=== PATIENT | male | born 1970 | race Caucasian/White ===

== ENCOUNTER 2018-03-20 16:42 | Emergency (ER) | payer BC ==
[2018-03-20] MEDS ORDERED: METHYLPREDNISOLONE PF 125MG/VIAL IM ONE (16:52)
--- NOTE | 2018-03-20 16:58 | Emergency Department Record ---
History of Present Illness - General Chief complaint: Bite Insect/other Stated complaint: BEE STING,ALLERGIC REATION HIVES Time Seen by Provider: 03/20/18 16:51 Source: Patient Mode of Arrival: Ambulatory Limitations: No limitations - History of Present Illness Initial comments: The patient was stung by a bee about 30 minutes prior to presenting to the ER. He does possibly have a hx of allergic reactions to stings and states he spent a night in the hospital many years ago because of the allergy. After the sting the patient did take 75 mg of Benadryl. He denies any ALMAS, SOB, trouble swallowing or voice changes. He does have a hive at the site of the bite on the R bicep and also the R hand and L side of his neck. MD complaint: Insect bite/sting, Rash Onset/Timin -: Minutes(s) Location: Neck, RUE Associated symptoms: Other Treatments Prior to Arrival: Benadryl Treatment Prior to Arrival Comment:: beer - Related Data Previous Rx's Medication Instructions Recorded Epinephrine [Epipen] 0.3 mg IM ASDIR PRN #1 syr 03/20/18 Prednisone [Prednisone 20Mg] 40 mg PO DAILY #8 tab 03/20/18 Allergies Allergy/AdvReac Type Severity Reaction Status Date / Time bee venom protein (honey bee) Allergy ANAPHYLAXIS Verified 03/20/18 16:53 Travel Screening - Travel/Exposure Within Last 30 Days Have you traveled within the last 30 days?: No - Travel/Exposure Within Last Year Have you traveled outside the [place] in the last year?: No - Additonal Travel Details Have you been exposed to anyone with a communicable illness?: No - Travel Symptoms Symptom Screening: None Review of Systems Constitutional: Denies: Chills, Fever Eyes: Denies: Eye discharge ENT: Denies: Congestion Respiratory: Denies: Cough, Dyspnea Past Medical History - SOCIAL HISTORY Smoking Status: Never smoker Alcohol Use: Rare Drug Use: None - RESPIRATORY Hx Respiratory Disorders: Yes Hx Asthma: Yes - CARDIOVASCULAR Hx Cardio Disorders: No - NEURO Hx Neuro Disorders: No - GI Hx GI Disorders: No - Hx Genitourinary Disorders: No - ENDOCRINE Hx Endocrine Disorders: No - MUSCULOSKELETAL Hx Musculoskeletal Disorders: No - PSYCH Hx Psych Problems: No - HEMATOLOGY/ONCOLOGY Hx Hematology/Oncology Disorders: No Family Medical History Any Significant Family History?: Yes Physical Exam - General General Appearance: Alert, Oriented x3, Cooperative, No acute distress - Head Head exam: Atraumatic, Normocephalic, Normal inspection - Eye Eye exam: Normal appearance, PERRL - ENT Throat exam: Normal inspection. negative: Tonsillar erythema, Tonsillar exudate - Neck Neck exam: Full ROM. negative: Normal inspection (There is a hive to the L neck measuring 1x1 cm.), Tenderness - Respiratory Respiratory exam: Normal lung sounds bilaterally. negative: Respiratory distress - Cardiovascular Cardiovascular Exam: Regular rate, Normal rhythm, Normal heart sounds - GI/Abdominal GI/Abdominal exam: Soft, Normal bowel sounds. negative: Tenderness - Extremities Extremities exam: negative: Normal inspection (There is a local allergic reaction at the bite site on the R bicep and also a hive over the dorsal R hand. ) - Neurological Neurological exam: Alert, Normal gait. negative: Abnormal gait, Motor sensory deficit Course Vital Signs 03/20/18 16:46 Temperature 97.8 F Pulse Rate 74 Respiratory 20 Rate Blood Pressure 124/87 Pulse Ox 96 - Reevaluation(s) Reevaluation #1: The patient is doing well. He has had no change in his condition and is resting comfortably. 03/20/18 17:05 Reevaluation #2: The patient is doing very well at this time. He has had no respiratory or swallowing issues and no swelling. The 3 areas of hives that he has had are resolving. 03/20/18 17:42 Reevaluation #3: The patient is doing much better at this time. He has had no ALMAS, SOB, or any further rash. The L neck rash and R hand rash have resolved and the R arm bite site is improving. The patient feels ready for home. 03/20/18 18:27 Disposition Disposition: Discharge Clinical Impression: Allergic reaction to bee sting Disposition: Home, Self-Care Condition: (2) Stable Instructions: Insect Bite or Sting (ED) Additional Instructions: Please use ice to the R arm bite site and continue the Benadryl 50 mg 4 times a day for 5 days. Continue the Prednisone tomorrow. Please see your family doctor in 2-3 days for any problems and return to the ER for any worsening symptoms or allergic reactions. Prescriptions: Epinephrine [Epipen] 0.3 mg IM ASDIR PRN #1 syr PRN Reason: Anaphylaxis Prednisone [Prednisone 20Mg] 40 mg PO DAILY #8 tab Forms: Patient Portal Access Time of Disposition: 18:31 Quality - Quality Measures Quality Measures: N/A - Blood Pressure Screening View Details: Yes Does Patient Have Any of the Following: No Blood Pressure Classification: Pre-Hypertensive BP Reading Systolic Measurement: 124 Diastolic Measurement: 87 Screening for High Blood Pressure: < Pre-Hypertensive BP, F/U Documented > [ [id number]] Pre-Hypertensive Follow-up Interventions: Referral to alternative/primary care provider.
== END 2018-03-20 18:38 | disposition home or self-care (01) ==
LOC: ER 16:42
DX: T63.441S Toxic effect of venom of bees, accidental (unintentional), sequela (principal); L50.8 Other urticaria
CPT/HCPCS: 96372; 99282; 99283; J2930